=== PATIENT | female | born 1960 | race Caucasian/White ===

== ENCOUNTER 2022-01-04 13:18 | Emergency (ER) | payer BC | END 2022-01-04 16:30 | disposition home or self-care (01) | LOC: JD.ED 13:18 | DX: M54.50 Low back pain, unspecified (principal); Z86.16 Personal history of COVID-19 | CPT/HCPCS: 72100; 72100-26; 81001; 99283 ==

== ENCOUNTER 2024-01-13 16:48 | Emergency (ER) | payer BC, MEDICARE ==
[2024-01-13] MEDS: Lidocaine 1% 10 ML MDV ONE (18:17)
[2024-01-13] MEDS: Lidocaine 1% 10 ML MDV INJECT ONE (18:20)
[2024-01-13] MEDS: Diphtheria,Pertussis(Acell),Tetanus Vaccine 0.5 ML Syringe IM ONE (18:48)
== END 2024-01-13 19:00 | disposition home or self-care (01) ==
LOC: JD.ED 16:48
DX: S71.111A Laceration without foreign body, right thigh, initial encounter (principal); Z23 Encounter for immunization; Z79.01 Long term (current) use of anticoagulants; Z86.16 Personal history of COVID-19; W26.8XXA Contact with other sharp object(s), not elsewhere classified, initial encounter
CPT/HCPCS: 12004; 90471; 90715; 99282-25; 99283; J3490